=== PATIENT | male | born 1990 | race Asian ===

== ENCOUNTER 2022-01-04 07:58 | Emergency (ER) | payer MEDICAID ==
[~2022-01-04] VITALS: Ht 172.7 cm; Wt 69.9 kg
[2022-01-04 08:04] VITALS: BP 119/87
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
--- NOTE | 2022-01-04 08:12 | NUR ---
DR JACOB AT BEDSIDE FOR FURTHER EVAL
[2022-01-04] MEDS ORDERED: TETRACAINE HCL/PF 0.5% OPTH 4 ML BTL OP ONE (08:15)
--- NOTE | 2022-01-04 08:25 | NUR ---
PT LEFT EYE IRRIGATED WITH NORMAL SALINE VIA KATHARINE LENS. ER NOTIFIED.
--- NOTE | 2022-01-04 08:49 | NUR ---
DR JACOB AT BEDSIDE FOR FURTHER EVAL AFTER EYE IRRIGATION
--- NOTE | 2022-01-04 08:58 | NUR ---
Patient discharged with v/s stable. Written and verbal after care instructions ABOUT CHEMICAL CONJUNCTIVITIS given and explained. Patient verbalized understanding. Ambulatory with steady gait. All questions addressed prior to discharge. Advised to follow up with PMD.
== END 2022-01-04 08:58 | disposition home or self-care (01) ==
LOC: MED 07:58
DX: H10.212 Acute toxic conjunctivitis, left eye (principal)
CPT/HCPCS: 99284

== ENCOUNTER 2022-10-15 08:51 | Emergency (ER) | payer MEDICAID ==
[~2022-10-15] VITALS: Ht 179.1 cm; Wt 69.9 kg
[2022-10-15 09:08] VITALS: BP 121/75
--- NOTE | 2022-10-15 09:13 | NUR ---
[facility] in [facility] - 10/15/22 at 0915 by [email or web address] DANISHA
--- NOTE | 2022-10-15 09:26 | NUR ---
PT AMB TO BED 6.
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
[2022-10-15] MEDS ORDERED: IBUP-1842 PO (10:14)
--- NOTE | 2022-10-15 10:55 | NUR ---
Patient discharged with v/s stable. Written and verbal after care instructions FOR VIRAL CONJUCTIVITIS given and explained. Patient alert, oriented and verbalized understanding of instructions. Ambulatory with steady gait. All questions addressed prior to discharge. ID band removed. Patient advised to follow up with PMD. Rx of MOTRIN given. Opportunity to ask questions provided and answered.
== END 2022-10-15 10:55 | disposition home or self-care (01) ==
LOC: MED 08:51
DX: B30.9 Viral conjunctivitis, unspecified (principal); Z79.1 Long term (current) use of non-steroidal anti-inflammatories (NSAID)
CPT/HCPCS: 99282